=== PATIENT | female | born 1975 ===

== ENCOUNTER 2017-11-13 14:28 | Emergency (ER) | payer OTHER ==
[2017-11-13 14:35] VITALS: O2SAT 100
[2017-11-13] MEDS ORDERED: Sodium Chloride 0.9% 1,000 ML IV STA (15:04)
[2017-11-13 15:28] LABS: HCG,QUALITATIVE URINE NEGATIVE (NEGATIVE)
[2017-11-13 15:32] LABS: URINE BILIRUBIN NEGATIVE (NEGATIVE); URINE CLARITY Clear (Clear); URINE COLOR Yellow (YELLOW); URINE GLUCOSE (UA) NORMAL (Normal); URINE LEUKOCYTE ESTERASE NEG Leu/uL (Negative); URINE NITRATE NEGATIVE (NEGATIVE); URINE PROTEIN NEGATIVE (NEGATIVE); URINE UROBILINOGEN NORMAL mg/dL (0.2-1.0)
[2017-11-13 15:37] LABS: BASO # 0.1 K/uL (0.0-0.2); BASO % 0.9 % (0.0-2.0); EOS # 0.3 K/uL (0.0-0.7); EOS % 3.4 % (0.0-4.0); HEMOGLOBIN 11.5 g/dL (11.0-16.0); LYMPH # 2.6 K/uL (1.0-4.3); LYMPH % 30.8 % (20.0-40.0); MEAN CELL VOLUME 92.2 fL (81.0-99.0); MEAN CORPUSCULAR HEMOGLOBIN 32.6 pg (27.0-31.0); MEAN CORPUSCULAR HGB CONC 35.4 g/dL (33.0-37.0); MEAN PLATELET VOLUME 9.3 fL (7.2-11.7); MONO # 0.5 K/uL (0.0-0.8); MONO % 5.5 % (0.0-10.0); NEUT # 5.1 K/uL (1.8-7.0); NEUT % 59.4 % (50.0-75.0); RBC 3.54 Mil/uL (3.80-5.20); RED CELL DISTRIBUTION WIDTH 11.9 % (11.5-14.5); WHITE BLOOD COUNT 8.6 K/uL (4.8-10.8)
[2017-11-13 15:38] LABS: SQUAMOUS EPITHIAL 2 /hpf (0-5)
[2017-11-13 15:47] LABS: URINE BLOOD 3+ (NEGATIVE)
[2017-11-13 15:51] LABS: PROTHROMBIN TIME 10.9 SECONDS (9.7-12.2)
[2017-11-13 15:52] LABS: ALB/GLOB RATIO 1.3 (1.0-2.1); ALBUMIN 4.5 g/dL (3.5-5.0); ALT/SGPT 32 U/L (9-52); AST/SGOT 35 U/L (14-36); BLOOD UREA NITROGEN 12 mg/dL (7-17); CALCIUM 9.3 mg/dl (8.6-10.4); GFR AFRICAN-AMERICAN > 60; GFR NON-AFRICAN AMERICAN > 60
--- NOTE | 2017-11-13 16:43 | C.PDOC ---
History Of Present Illness 42 year old female, with PMHx of ovarian cyst, presents to ED for evaluation of vaginal bleeding since 10/31/17. Pt states that bleeding initially started as normal menstrual period but it still persists. Notes having similar symptoms of vaginal bleeding in the past, and reports having an unknown [place]. Pt reports having history of anemia, and admits to having blood transfusion after childbirth. Pt admits to generalized weakness, and lightheadedness. Denies any n/v/d, or other complaints. Chief Complaint (Nursing): Female Genitourinary History Per: Patient History/Exam Limitations: no limitations Onset/Duration Of Symptoms: Days Current Symptoms Are (Timing): Still Present Alleviating Factors: None Recent travel outside of the [place]: No Additional History Per: Patient Abnormal Vaginal Bleeding: Yes Past Medical History Reviewed: Historical Data, Nursing Documentation, Vital Signs Vital Signs: Last Vital Signs Temp 98.3 F 11/13/17 18:15 Pulse 70 11/13/17 18:15 Resp 18 11/13/17 18:15 BP 144/85 11/13/17 18:15 Pulse Ox 100 11/13/17 18:23 - Medical History PMH: Hyperlipidemia Family History: States: Unknown Family Hx - Social History Hx Alcohol Use: No Hx Substance Use: No - Immunization History Hx Tetanus Toxoid Vaccination: No Hx Influenza Vaccination: No Hx Pneumococcal Vaccination: No Review Of Systems Except As Marked, All Systems Reviewed And Found Negative. Constitutional: Positive for: Weakness. Negative for: Fever, Chills Cardiovascular: Positive for: Light Headedness. Negative for: Chest Pain, Palpitations Gastrointestinal: Negative for: Nausea, Vomiting, Diarrhea Genitourinary: Positive for: Vaginal Bleeding. Negative for: Dysuria, Frequency Musculoskeletal: Negative for: Back Pain Physical Exam - Physical Exam Appears: Non-toxic, No Acute Distress Skin: Normal Color, Warm, Dry Head: Atraumatic, Normacephalic Eye(s): bilateral: Normal Inspection, EOMI Oral Mucosa: Moist Neck: Normal ROM, Supple Cardiovascular: Rhythm Regular, No Murmur Respiratory: Normal Breath Sounds, No Rales, No Rhonchi, No Wheezing Gastrointestinal/Abdominal: Soft, Tenderness (suprapubic), No Guarding, No Rebound Back: No CVA Tenderness Extremity: Normal ROM, No Deformity Neurological/Psych: Oriented x3, Normal Speech ED Course And Treatment - Laboratory Results Result Diagrams: 11/13/17 15:24 11/13/17 15:24 O2 Sat by Pulse Oximetry: 100 (RA) Pulse Ox Interpretation: Normal - CT Scan/US Pelvis US Other Rad Studies (CT/US): Read By Radiologist, Radiology Report Reviewed CT/US Interpretation: HISTORY: vaginal bleeding. By history, negative test (concurrent with this examination). Menstrual status: LMP 2016. COMPARISON: None available. TECHNIQUE: Transabdominal, transvaginal. Real -time technique with 2D, duplex and color Doppler. FINDINGS: UTERUS: Measures 3.9 x 5.1 x 7.9 cm. Normal in size and appearance. No fibroid or other mass lesion seen. ENDOMETRIUM: Measures 9.0 mm in diameter. No ultrasound findings to suggest gestational sac, fluid, debris, mass or polyp or other pathologic process within the endometrium. CERVIX: No cervical abnormality identified. Closed cervix 3.6 cm. Incidental finding: Nabothian cysts the largest measures 8 mm. RIGHT OVARY: Prior right oophorectomy. LEFT OVARY: Measures 1.9 x 3.7 x 3.1 cm. No solid mass. Normal flow. Simple cyst 1.1 x 2.1 cm. FREE FLUID: No significant free fluid noted. OTHER FINDINGS: None. IMPRESSION: Grow significant. Additional benign and/or incidental findings described above. Progress Note: Blood work, UA, pelvis US ordered and reviewed. Pt was given IV fluids. Patient was d/c home with OBGYN follow up. Disposition - Disposition Referrals: [facility] [Outside] [facility] [Outside] [facility] [facility] [Outside] Disposition: HOME/ ROUTINE Disposition Time: 18:22 Condition: STABLE Additional Instructions: Follow up in Clinic within 2-3 days. Return to ED if feel worse. Prescriptions: MedroxyPROGESTERone [Provera] 1 tab PO DAILY #10 tab Instructions: Dysfunctional Uterine Bleeding (ED) Forms: [facility] (Czech) Print Language: ECUADOREAN - Clinical Impression Clinical Impression: DUB (dysfunctional uterine bleeding) - PA / LAB DIRECTOR / Resident Statement MD/DO has reviewed & agrees with the documentation as recorded. - Scribe Statement The provider has reviewed the documentation as recorded by the Tiffanieibe Melina Brown All medical record entries made by the Scribe were at my direction and personally dictated by me. I have reviewed the chart and agree that the record accurately reflects my personal performance of the history, physical exam, medical decision making, and the department course for this patient. I have also personally directed, reviewed, and agree with the discharge instructions and disposition.
--- NOTE | 2017-11-13 17:53 | US ---
HISTORY: vaginal bleeding By history, negative test (concurrent with this examination). Menstrual status: LMP 09/25/2017 COMPARISON: None available. TECHNIQUE: Transabdominal, transvaginal. Real -time technique with 2D, duplex and color Doppler. FINDINGS: UTERUS: Measures 3.9 x 5.1 x 7.9 cm. Normal in size and appearance. No fibroid or other mass lesion seen. ENDOMETRIUM: Measures 9.0 mm in diameter. No ultrasound findings to suggest gestational sac, fluid, debris, mass or polyp or other pathologic process within the endometrium. CERVIX: No cervical abnormality identified. Closed cervix 3.6 cm. Incidental finding: Nabothian cysts the largest measures 8 mm. RIGHT OVARY: Prior right oophorectomy. LEFT OVARY: Measures 1.9 x 3.7 x 3.1 cm. No solid mass. Normal flow. Simple cyst 1.1 x 2.1 cm FREE FLUID: No significant free fluid noted. OTHER FINDINGS: None. IMPRESSION: Grow significant Additional benign and/or incidental findings described above.
[2017-11-13 18:16] VITALS: BP 144/85; PULSE 70; RESP 18; TEMP 98.3
== END 2017-11-13 18:30 | disposition home or self-care (01) ==
LOC: C.ER 14:28
DX: N93.8 Other specified abnormal uterine and vaginal bleeding (principal)
CPT/HCPCS: 76830; 76856; 80053; 81001; 84702; 84703; 85025; 85610; 85730; 86850; 86900; 96360; 99284; J7040

== ENCOUNTER 2018-01-27 19:31 | Emergency (ER) | payer SELFPAY ==
[2018-01-27 20:46] LABS: SQUAMOUS EPITHIAL 1 /hpf (0-5); URINE BILIRUBIN NEGATIVE (NEGATIVE); URINE BLOOD 2+ (NEGATIVE); URINE CLARITY Clear (Clear); URINE COLOR Straw (YELLOW); URINE GLUCOSE (UA) NORMAL (Normal); URINE LEUKOCYTE ESTERASE NEG Leu/uL (Negative); URINE PROTEIN NEGATIVE (NEGATIVE); URINE UROBILINOGEN NORMAL mg/dL (0.2-1.0)
[2018-01-27 20:48] LABS: HCG,QUALITATIVE URINE NEGATIVE (NEGATIVE)
[2018-01-27] MEDS ORDERED: Sodium Chloride 0.9% 1,000 ML IV ONE (20:59)
--- NOTE | 2018-01-27 20:59 | C.PDOC ---
History Of Present Illness Patient is a 42 y/o female who presents to the ED with a complaint of intermittent vaginal bleeding for the last 2 months. Patient describes episodes as heavy vaginal bleeding in nature; notes some abdominal cramping. Patient denies fever or chills. No other physical complaints at this time. Time Seen by Provider: 01/27/18 20:59 Chief Complaint (Nursing): Abdominal Pain History Per: Patient History/Exam Limitations: no limitations Onset/Duration Of Symptoms: Days (2 months), Intermittent Episodes Current Symptoms Are (Timing): Still Present Severity: Moderate Pain Scale Rating Of: 4 Quality Of Discomfort: Cramping Associated Symptoms: Urinary Symptoms (intermittent vaginal bleeding) Past Medical History Reviewed: Historical Data, Nursing Documentation, Vital Signs Vital Signs: Last Vital Signs Temp 98.8 F 01/27/18 21:25 Pulse 62 01/27/18 21:25 Resp 16 01/27/18 21:25 BP 157/84 H 01/27/18 21:25 Pulse Ox 98 01/27/18 23:06 - Medical History PMH: Hyperlipidemia Surgical History: No Surg Hx Family History: States: No Known Family Hx - Social History Hx Tobacco Use: No Hx Alcohol Use: No Hx Substance Use: No - Immunization History Hx Tetanus Toxoid Vaccination: No Hx Influenza Vaccination: No Hx Pneumococcal Vaccination: No Review Of Systems Constitutional: Negative for: Fever, Chills Gastrointestinal: Positive for: Abdominal Pain (some abdominal cramping). Negative for: Nausea, Vomiting Genitourinary: Positive for: Vaginal Bleeding (intermittent, heavy in nature). Negative for: Dysuria, Frequency Physical Exam - Physical Exam Appears: Well, Non-toxic, No Acute Distress Skin: Warm, Dry Head: Normacephalic Eye(s): bilateral: Normal Inspection Oral Mucosa: Moist Chest: Symmetrical Cardiovascular: Rhythm Regular, No Murmur Respiratory: No Decreased Breath Sounds, No Rales, No Rhonchi, No Wheezing Gastrointestinal/Abdominal: Soft, Tenderness (mild suprapubic tenderness ), No Guarding, No Rebound Neurological/Psych: Oriented x3, Other (no focal deficits) ED Course And Treatment - Laboratory Results Result Diagrams: 01/27/18 21:01 01/27/18 21:01 O2 Sat by Pulse Oximetry: 98 Pulse Ox Interpretation: Normal Progress Note: Pelvis/transvaginal US ordered. IV fluids administered. Reevaluation Time: 00:18 Reassessment Condition: Improved Disposition Counseled Patient/Family Regarding: Studies Performed, Diagnosis, Need For Followup - Disposition Referrals: [facility] [Outside] [facility] [Outside] Disposition: HOME/ ROUTINE Disposition Time: 20:59 Condition: FAIR Additional Instructions: Please return if symptoms recur Instructions: Heavy Periods (DC) Forms: [employer] (Latvian) Print Language: UZBEK - Clinical Impression Clinical Impression: Vaginal bleeding, Endometrial polyp - Scribe Statement The provider has reviewed the documentation as recorded by the Scribe Jana Renner All medical record entries made by the Scribe were at my direction and personally dictated by me. I have reviewed the chart and agree that the record accurately reflects my personal performance of the history, physical exam, medical decision making, and the department course for this patient. I have also personally directed, reviewed, and agree with the discharge instructions and disposition.
[2018-01-27 21:12] LABS: BASO # 0.1 K/uL (0.0-0.2); BASO % 0.6 % (0.0-2.0); EOS % 0.4 % (0.0-4.0); HEMOGLOBIN 11.7 g/dL (11.0-16.0); LYMPH # 2.6 K/uL (1.0-4.3); LYMPH % 27.6 % (20.0-40.0); MEAN CELL VOLUME 92.5 fL (81.0-99.0); MEAN CORPUSCULAR HGB CONC 34.6 g/dL (33.0-37.0); MEAN PLATELET VOLUME 9.2 fL (7.2-11.7); MONO # 0.5 K/uL (0.0-0.8); MONO % 5.6 % (0.0-10.0); NEUT # 6.1 K/uL (1.8-7.0); NEUT % 65.8 % (50.0-75.0); NRBC % 0.1 % (0.0-2.0); RBC 3.65 Mil/uL (3.80-5.20); RED CELL DISTRIBUTION WIDTH 11.6 % (11.5-14.5); WHITE BLOOD COUNT 9.3 K/uL (4.8-10.8)
[2018-01-27 21:22] LABS: INR 0.9; PROTHROMBIN TIME 10.6 SECONDS (9.7-12.2)
[2018-01-27 21:23] LABS: ALB/GLOB RATIO 1.1 (1.0-2.1); ALBUMIN 4.1 g/dL (3.5-5.0); ALT/SGPT 23 U/L (9-52); AST/SGOT 26 U/L (14-36); BLOOD UREA NITROGEN 11 mg/dL (7-17); CALCIUM 8.5 mg/dl (8.6-10.4); GFR AFRICAN-AMERICAN > 60; GFR NON-AFRICAN AMERICAN > 60
[2018-01-28 00:47] VITALS: BP 166/87; PULSE 71; RESP 22; TEMP 99; O2SAT 99
--- NOTE | 2018-01-28 08:26 | US ---
HISTORY: heavy vag bleed. LMP 11/25/2017. History of right oophorectomy. COMPARISON: Pelvic ultrasound 11/13/2017 TECHNIQUE: Grayscale and color Doppler sonographic images were obtained of the pelvis utilizing transabdominal and transvaginal approach. FINDINGS: UTERUS: Anteverted and normal in size measuring 9.5 x 4 x 5.8 cm. ENDOMETRIUM: Normal in caliber endometrial stripe measures 0.5 cm. Small amount of fluid noted within the endometrial canal. There is an echogenic 0.8 cm mass/polyp within the endometrial canal. CERVIX: No definite cervical abnormality identified. RIGHT OVARY: Surgically absent. LEFT OVARY: Measures 2.2 x 1.4 x 2.1 cm. Follicle noted. Normal flow. FREE FLUID: No significant free fluid noted. OTHER FINDINGS: None. IMPRESSION: Echogenic 0.8 cm mass versus polyp within the endometrial canal, fibroid could also be considered. Small amount of fluid within the endometrial canal. Consider direct visualization for further evaluation. Preliminary impression was provided by [facility]. Findings are concordant.
== END 2018-01-28 00:59 | disposition home or self-care (01) ==
LOC: C.ER 19:31
DX: N84.0 Polyp of corpus uteri (principal); N93.9 Abnormal uterine and vaginal bleeding, unspecified
CPT/HCPCS: 76830; 76856; 80053; 81001; 84703; 85025; 85610; 85730; 86850; 86900; 96360; 99284; J7040